=== PATIENT | female | born 2000 | race Caucasian/White ===

== ENCOUNTER 2021-12-01 11:55 | Outpatient (CLI) | payer BC, SELFPAY ==
--- NOTE | 2021-12-01 | ECG_ITS ---
Measurements Intervals Central Rate: 77 P: 15 TX: 162 QRS: 88 QRSD: 89 T: 37 QT: 363 QTc: 413 Interpretive Statements SINUS RHYTHM POSSIBLE RIGHT VENTRICULAR CONDUCTION DELAY [RSR (QR) IN V1/V2] NO PREVIOUS ECG AVAILABLE FOR COMPARISON Electronically Signed On 12-01-2021 18:07:11 CDT by Oanh Kendrick M.D.
[2021-12-01 12:33] LABS: Hematocrit 37.9 % (37.0-47.0); Hemoglobin 12.9 g/dL (12.0-15.0); Mean Corpuscular Hemoglobin 28.5 pg (26-34); Mean Corpuscular Volume 83.8 fl (80-100); Mean Platelet Volume 11.4 fl (7.4-10.4); Platelet Count Result 234 k/mm3 (150-375); Red Blood Count 4.52 M/mm3 (4.2-5.4); Red Cell Distribution Width 13.1 % (11.5-14.5)
[2021-12-01 12:44] LABS: Alanine Aminotransferase 45 U/L (6-35); Albumin Level 4.5 g/dL (3.5-5.1); Alkaline Phosphatase 52 U/L (38-126); Anion Gap 6 mmol/L (8-16); Aspartate Amino Transferase 44 U/L (14-36); Bilirubin,Total 0.5 mg/dL (0.2-1.3); Blood Urea Nitrogen 12 mg/dL (7-17); Calcium 9.3 mg/dL (8.4-10.2); Carbon Dioxide 25 mmol/L (22-30); Chloride 107 mmol/L (98-107); Estimated Glomerular Filt Rate > 60; Glucose 92 mg/dL (65-110); Magnesium 1.7 mg/dL (1.6-2.3); Potassium 4.2 mmol/L (3.4-5.0); Sodium 138 mmol/L (137-145)
[2021-12-01 14:11] LABS: Free T4 Free Thyroxine 1.21 ng/mL (0.78-2.19)
== END 2021-12-01 11:56 | disposition home or self-care (01) ==
LOC: ANHLAB 12:05
PROVIDERS: Visit Provider Nurse Practitioner
DX: R00.2 Palpitations (principal)
CPT/HCPCS: 36415; 80053; 82607; 83036; 83735; 84439; 84443; 85027; 93005

== ENCOUNTER 2022-05-04 10:07 | Outpatient (CLI) | payer BC, SELFPAY ==
[2022-05-04 10:48] LABS: Alanine Aminotransferase 31 U/L (6-35); Albumin Level 4.3 g/dL (3.5-5.1); Alkaline Phosphatase 47 U/L (38-126); Aspartate Amino Transferase 30 U/L (14-36); Bilirubin,Total 0.7 mg/dL (0.2-1.3)
[2022-05-04 11:19] LABS: Hepatitis B Surface Antigen Negative (Negative)
[2022-05-04 11:24] LABS: HAV RESULT Negative (Negative); Hepatitis B Core IgM Result Negative (Negative)
[2022-05-04 11:36] LABS: Hepatitis C Virus Antibody Negative (Negative)
[2022-05-07 15:38] LABS: GGT 12 U/L (3-40)
== END 2022-05-04 10:08 | disposition home or self-care (01) ==
LOC: ANHLAB 10:09
PROVIDERS: PCP Nurse Practitioner Family; Visit Provider Nurse Practitioner Family
DX: R74.01 Elevation of levels of liver transaminase levels (principal)
CPT/HCPCS: 36415; 80074; 80076; 82977

== ENCOUNTER 2022-06-16 11:56 | Outpatient (CLI) | payer BC, SELFPAY ==
[2022-06-16 12:08] LABS: Hematocrit 37.1 % (37.0-47.0); Hemoglobin 12.1 g/dL (12.0-15.0); Mean Corpuscular HGB Conc 32.6 g/dl (32-36); Mean Corpuscular Hemoglobin 28.3 pg (26-34); Mean Corpuscular Volume 86.7 fl (80-100); Mean Platelet Volume 10.7 fl (7.4-10.4); Platelet Count Result 248 k/mm3 (150-375); Red Blood Count 4.28 M/mm3 (4.2-5.4); Red Cell Distribution Width 13.2 % (11.5-14.5); White Blood Count 4.7 K/mm3 (4.5-10.0)
[2022-06-16 12:38] LABS: Free T4 Free Thyroxine 1.14 ng/mL (0.78-2.19)
[2022-06-16 12:39] LABS: Beta HCG Quantitative < 2.39 mIU/ML
== END 2022-06-16 11:57 | disposition home or self-care (01) ==
PROVIDERS: PCP Nurse Practitioner Family; Visit Provider Nurse Practitioner
DX: N93.8 Other specified abnormal uterine and vaginal bleeding (principal)
CPT/HCPCS: 36415; 84439; 84443; 84702; 85027

== ENCOUNTER → 2022-06-16 14:50 | Outpatient (CLI) | payer BC, SELFPAY ==
--- NOTE | ~2022-06-16 | US_ITS ---
EXAMINATION: US pelvic complete DATE: 06/16/2022 15:08 INDICATION: Abnormal uterine bleeding TECHNIQUE: Multiple transabdominal sonographic images of the pelvis were obtained. COMPARISON: None. FINDINGS: The uterus measures 8.4 x 4.1 x 6.0 cm. The endometrial complex measures 5 mm. The right ov saw measures 2.9 x 2.4 x 2.5 cm. The left ovary measures 2.3 x 1.2 x 2.2 cm. There is normal vascular flow in the ovaries. There is no free fluid in the pelvis. IMPRESSION: 1. No sonographic correlate for the patient's symptoms. Reviewed, dictated and finalized at location [facility]. [facility]
== END ==
PROVIDERS: PCP Nurse Practitioner; Visit Provider Nurse Practitioner
DX: R19.09 Other intra-abdominal and pelvic swelling, mass and lump (principal); N93.8 Other specified abnormal uterine and vaginal bleeding
CPT/HCPCS: 76856